=== PATIENT | male | born 1960 | race Caucasian/White ===

== ENCOUNTER 2018-11-17 17:23 | Observation (INO) | payer OTHER ==
[2018-11-17 18:48] LABS: CKMB 2.3 ng/mL (0-6.6)
[2018-11-17 21:29] LABS: Critical Call Chem Troponin I RESULT DECREASING
[2018-11-17 21:47] LABS: CKMB 2.6 ng/mL (0-6.6)
[2018-11-17 23:55] VITALS: BMI 25.3
[2018-11-18] MEDS ORDERED: Acetaminophen 325 MG TAB PO PRN (00:49)
[2018-11-18] MEDS ORDERED: Acetaminophen 650 MG Suppository PR PRN (00:49)
[2018-11-18] MEDS ORDERED: Senokot S 8.6-50 MG TAB PO PRN (00:49)
[2018-11-18] MEDS ORDERED: Calcium Carbonate 500 MG ChewTAB PO PRN (00:49)
[2018-11-18] MEDS ORDERED: Zolpidem Tartrate 5 MG TAB PO PRN (00:49)
[2018-11-18] MEDS ORDERED: Bisacodyl 5 MG TAB PO PRN (00:49)
[2018-11-18 05:56] LABS: #Eosinphils 0.1 thou/uL (0.0-0.7); #Lymphocytes 1.6 thou/uL (1.20-3.40); #Monocytes 0.8 thou/uL (0.11-0.59); #Neutrophils 2.9 thou/uL (1.40-6.50); %Basophils 0.9 % (0.0-1.0); %Eosinophils 1.3 % (0.0-10.0); %Lymphocytes 29.2 % (21.0-51.0); %Monocytes 14.1 % (0.0-10.0); %Neutrophils 54.5 % (42.0-75.0); Hemoglobin 13.2 g/dL (14.0-18.0); Mean Corpuscular HGB CONC 34.4 g/dL (32.0-36.0); Mean Platelet Volume 7.2 fL (7.4-10.4); Platelet Count 177 thou/uL (130-400); RBC Distribution Width 11.1 % (11.5-14.5); Red Blood Cell (RBC) Count 3.78 mill/uL (4.70-6.10); White Blood Cell (WBC) Count 5.4 thou/uL (4.8-10.8)
[2018-11-18 06:22] LABS: Anion Gap 11 mmol/L (10-20); BUN (Urea Nitrogen) 11 mg/dL (8.4-25.7); Calc. Creatinine Clearance 117 mL/min (70-130); Calcium 8.8 mg/dL (7.8-10.44); Carbon Dioxide 24 mmol/L (22-29); Chloride 100 mmol/L (98-107); Estimated GFR-MDRD Greater than 90; Glucose 93 mg/dL (70-105); Sodium 131 mmol/L (136-145)
[2018-11-18] MEDS ORDERED: Enoxaparin Sodium 80 MG/0.8 ML SYRINGE SC SCH ×2 (09:00)
[2018-11-18] MEDS: Famotidine 20 MG TAB PO SCH ×2 (09:12→21:30)
[2018-11-18] MEDS: Lisinopril/Hydrochlorothiazide 10 mg/12.5 mg Tablet PO SCH (09:12)
[2018-11-18] MEDS: Famotidine/PF 20 mg/2ml Vial SLOW IVP SCH ×2 (09:13→21:30)
[2018-11-18] MEDS: Aspirin 81 mg Enteric Coated Tablet PO SCH (09:13)
[2018-11-18 10:31] LABS: CKMB 2.4 ng/mL (0-6.6); Troponin I 0.093 ng/mL (< 0.028)
[2018-11-18] MEDS ORDERED: Lorazepam 0.5 MG TAB PO PRN (12:00)
--- NOTE | 2018-11-18 17:47 | HP ---
CHIEF COMPLAINT: Chest pain and dizziness. HISTORY OF PRESENT ILLNESS: The patient is a very pleasant 57-year-old male with a history of hypertension, who presented to the hospital with complaints of some chest tightness and dizziness. The patient stated that he was driving yesterday, started having significant amount of dizziness followed by palpitations of the chest. The patient stated that this has been happening to him 4 or 5 times in the past. However, he would just stop the car, would just sit down and the symptoms would go away. However, at this time, his symptoms persisted, so he came into the ER for further evaluation. The patient denies any fevers or chills. He denies any shortness of breath, any diarrhea, or any abdominal pain. The patient did have an EKG done initially, which indicated he has an SVT with a rate of 224. At this time, he was given 6 mg of adenosine and then converted and then followed by Valsalva maneuver, he went into normal sinus rhythm after that. The patient was transported here for further evaluation. PAST MEDICAL HISTORY: Has a history of hypertension. PAST SURGICAL HISTORY: He has had this paroxysmal supraventricular tachycardia and has failed ablation last time when he was here. When he was here, he had a post complication from the ablation procedure, which caused him to have a cardiac tamponade. He has had a thoracotomy with evacuation of pericardial hematoma. ALLERGIES: THE PATIENT HAS NO KNOWN DRUG ALLERGIES. MEDICATIONS: He takes lisinopril/hydrochlorothiazide 10/12.5 mg one p.o. daily and 81 mg of baby aspirin daily. REVIEW OF SYSTEMS: All negative except for the ones mentioned above in the HPI. SOCIAL HISTORY: The patient drinks about 10 beers a day. However, on , he drank more. Denies any tobacco use or any recreational drug use. He is a full code. He lives with his family members and states that every time he gets stressed down, sometimes he gets these symptoms of chest pain and palpitations. FAMILY HISTORY: Significant for heart disease in grandfather. PHYSICAL EXAMINATION: VITAL SIGNS: Are as of the following; temperature of 97.9, 55 heart rate, respirations 16, 99% on room air, blood pressure 117/80. GENERAL: He is awake, alert, and oriented x3. Does not feel any distress. CV: S1 and S2 present. No murmurs, rubs, or gallops. ABDOMEN: Soft and nontender. Bowel sounds are present x2. No hepatomegaly or splenomegaly noted. EXTREMITIES: No edema. Pedal pulses present x2. NEUROVASCULAR: There are no focal deficits noted. SKIN: No cuts, lesions, or bruises noted. HEENT: Normocephalic, atraumatic. LABORATORY RESULTS: As of the following; WBCs of 5.4, hemoglobin of 13.2, hematocrit of 38.4. His platelets are 177. Chemistry; sodium of 131, potassium of 4, BUN of 11, creatinine of 0.80. His initial troponin was 0.499, second one was 0.492, his repeat one was 0.093. The patient's EKG does have some mild T-wave inversions. ASSESSMENT AND PLAN: The patient is a very pleasant 57-year-old male, who presents to the hospital with complaints of chest pain. 1. Supraventricular tachycardia. The patient apparently has had this before and was supposed to get ablation back in 2014. However, there was a complication post when he had the procedure done. The patient currently does not take anything for rate control. He is only on lisinopril/hydrochlorothiazide. Cardiology has been consulted. Also, I did recommend this patient not to be drinking so much, which could be possibly causing him to have worsening supraventricular tachycardia. The patient normally drinks 10 drinks a day, sometimes more; on [place] time, he had more. 2. Elevated troponin. This possibly could most likely demand ischemia related from the supraventricular tachycardia. His heart rate was 220. We will just continue to monitor. The patient currently is chest pain free. 3. Alcohol abuse. The patient has been drinking, normally drinks 10 beers a day. I will put him on DANIEL protocol, also p.r.n. Ativan as needed. 4. Deep venous thrombosis prophylaxis. We will put the patient on some subcu heparin. Job ID: [id number]
[2018-11-19] MEDS: Lisinopril/Hydrochlorothiazide 10 mg/12.5 mg Tablet PO SCH (09:09)
[2018-11-19] MEDS: Famotidine 20 MG TAB PO SCH ×2 (09:09→20:57)
[2018-11-19] MEDS: Enoxaparin Sodium 40 MG/0.4 ML SYRINGE SC SCH (09:12)
[2018-11-19] MEDS: Aspirin 81 mg Enteric Coated Tablet PO SCH (09:12)
[2018-11-19] MEDS: Famotidine/PF 20 mg/2ml Vial SLOW IVP SCH ×2 (09:13→20:57)
[2018-11-19] MEDS ORDERED: ADENOSINE 60 MG/20 ML VIAL ONE (11:49)
--- NOTE | 2018-11-19 15:27 | CON ---
DATE OF CONSULTATION: REASON FOR CONSULTATION: Abnormal EKG and SVT. HISTORY OF PRESENT ILLNESS: Mr. Hayward is a 57-year-old gentleman, who is a patient of Dr. Lino Rai. He has a previous history of coronary angiography in 2016, and was not found to have significant coronary artery disease. He has also underwent ablation complicated by perforation and cardiac window. He recently presented with palpitations and tachycardia. He did have shortness of breath. He states that he was at work. He proceeded to the emergency room. He was found to be in SVT. The patient did convert to sinus rhythm. His EKG did suggest a new ST-T wave changes in addition to mildly elevated troponin at 0.4. He had no chest pain, pressure, or associated symptoms. This is felt to be due to demand ischemia. PAST MEDICAL HISTORY: Hypertension and SVT. HOME MEDICATIONS: Include lisinopril/hydrochlorothiazide. ALLERGIES: NONE. SOCIAL HISTORY: Positive for alcohol use, increased use over the [place] holidays. FAMILY HISTORY: Negative for CAD. REVIEW OF SYMPTOMS: A 10-point review of systems is reviewed and as above, otherwise negative. PHYSICAL EXAMINATION: VITAL SIGNS: Blood pressure 114/82, pulse 58, temperature 98.2. GENERAL: Patient is a pleasant 57-year-old who is in no acute distress. The patient appears their stated age. NEUROLOGIC: The patient is alert and oriented x3 with no focal neurologic deficits. HEENT: Sclerae without icterus. Mouth has moist mucous membranes with normal pallor. NECK: No JVD. Carotid upstroke brisk. No bruits bilaterally. LUNGS: Clear to auscultation with unlabored respirations. BACK: No scoliosis or kyphosis. CARDIAC: Regular rate and rhythm with normal S1 and S2. No S3 or S4 noted. No significant rubs, murmurs, thrills, or gallops noted throughout the precordium. PMI is not displaced. There is no parasternal heave. ABDOMEN: Soft, nontender, nondistended. No peritoneal signs present. No hepatosplenomegaly. No abnormal striae. EXTREMITIES: 2+ femoral and 2+ dorsalis pedis pulses. No cyanosis, clubbing, or edema. SKIN: No gross abnormalities. PERTINENT LABORATORY DATA: Hemoglobin 13.2. Creatinine 0.8. Peak troponin 0.499. DIAGNOSTIC DATA: EKG showed normal sinus rhythm with ST-T changes suggesting ischemia. IMPRESSION: 1. Supraventricular tachycardia. 2. Abnormal EKG. 3. Abnormal enzymes. RECOMMENDATIONS: Elevated troponin and EKG changes are likely related to demand ischemia. He did have coronary angiography report in 2016. I would like to assess prior to discharge. I have discussed repeat coronary angiography versus noninvasive stress study. I have discussed risks and benefits of both, decided to proceed with a noninvasive stress study. This will be scheduled today. From an SVT standpoint, we would recommend medical therapy. We would recommend digoxin at 0.125 one p.o. q.a.m. in addition to a low-dose beta karl therapy. Job ID: [id number]
--- NOTE | 2018-11-19 15:49 | EKG ---
Test Reason : Blood Pressure : / mmHG Vent. Rate : 067 BPM Atrial Rate : 067 BPM P-R Int : 150 ms QRS Dur : 090 ms QT Int : 424 ms P-R-T Axes : 028 -18 044 degrees QTc Int : 448 ms Normal sinus rhythm T wave abnormality, consider anterolateral ischemia T wave inversion Abnormal ECG Confirmed by STEPHIE PIERSON DO ([id number]), map editor PAPO JERNIGAN ([id number] on 11/19/2018 3:49:28 PM Referred By: Confirmed By:STEPHIE PIERSON DO
[2018-11-19] MEDS: Digoxin 0.25 MG TAB PO SCH ×2 (16:00→20:57)
--- NOTE | 2018-11-19 20:02 | NM ---
MYOCARDIAL PERFUSION STUDY: 11/19/2018 HISTORY: Abnormal EKG. Hypertension. SVT. RADIOPHARMACEUTICAL: Technetium 99m sestamibi 30.2 millicuries IV at stress. Technetium 99m sestamibi 10 millicuries IV at rest. MEDICATIONS: Adenosine 14.9 mL (44.8 mg) IV. FINDINGS: No significant reversible defect is seen between the stress and resting acquisitions. Gated images d emonstrate normal ventricular wall thickening. There is mild hypokinesis involving the septum. Calc ulated left ventricular ejection fraction is within normal limits at 62%. IMPRESSION: 1. Normal myocardial perfusion study without evidence of a reversible defect seen to suggest ischemi a. 2. Hypokinesis involving the ventricular septum. 3. Normal left ventricular ejection fraction of 62%. POS: KRISTINE
[2018-11-20] MEDS: Digoxin 0.25 MG TAB PO SCH (02:59)
[2018-11-20 07:48] VITALS: BP 108/77; TEMP 98.2
[2018-11-20] MEDS: Aspirin 81 mg Enteric Coated Tablet PO SCH (08:57)
[2018-11-20] MEDS: Lisinopril/Hydrochlorothiazide 10 mg/12.5 mg Tablet PO SCH (08:57)
[2018-11-20] MEDS: Famotidine 20 MG TAB PO SCH (08:58)
[2018-11-20] MEDS: Enoxaparin Sodium 40 MG/0.4 ML SYRINGE SC SCH (08:58)
[2018-11-20] MEDS: Famotidine/PF 20 mg/2ml Vial SLOW IVP SCH (08:59)
[2018-11-20] MEDS ORDERED: Digoxin 0.125 MG TAB PO SCH (09:00)
--- NOTE | 2018-11-20 10:14 | PDOC.PN ---
- Subjective Encounter Start Date: 11/19/18 Encounter Start Time: 09:00 -: old records requested/rev Pt seen and examined, chart reviewed in its entirety, this is my first visit with this patient No further CP, biomarkers down. Cards consult pending, no new recs No F/C, no N/V/D/C, no CP or SOB All systems reviewed and neg x as above - Objective MAR Reviewed: Yes Vital Signs & Weight: Vital Signs (12 hours) Temp Pulse Resp BP BP Pulse Ox 11/20/18 09:00 57 L 11/20/18 07:46 98.2 F 59 L 16 108/77 96 11/20/18 04:00 97.7 F 62 18 106/75 106/75 98 11/20/18 02:59 57 L 11/20/18 00:00 97.9 F 57 L 18 110/75 110/75 98 Weight Weight 176 lb 6.4 oz I&O: 11/19/18 11/20/18 11/21/18 06:59 06:59 06:59 Intake Total 1140 740 240 Output Total 0 Balance 1140 740 240 Result Diagrams: 11/18/18 05:23 11/18/18 05:23 Radiology Reviewed by me: Yes EKG Reviewed by me: Yes Phys Exam - Physical Examination Constitutional: NAD HEENT: PERRLA, moist MMs, sclera anicteric, oral pharynx no lesions Neck: no nodes, no JVD, supple, full ROM Respiratory: no wheezing, no rales, no rhonchi, clear to auscultation bilateral Cardiovascular: RRR, no significant murmur, no rub Gastrointestinal: soft, non-tender, no distention, positive bowel sounds Musculoskeletal: no edema, pulses present Neurological: non-focal, normal sensation, moves all 4 limbs Lymphatic: no nodes Psychiatric: normal affect, A&O x 3 Skin: no rash, normal turgor, cap refill <2 seconds Dx/Plan (1) Demand ischemia Code(s): I24.8 - OTHER FORMS OF ACUTE ISCHEMIC HEART DISEASE Status: Acute (2) SVT (supraventricular tachycardia) Code(s): I47.1 - SUPRAVENTRICULAR TACHYCARDIA Status: Resolved (3) Chronic alcohol abuse Code(s): F10.10 - ALCOHOL ABUSE, UNCOMPLICATED Status: Chronic (4) Hypertension Code(s): I10 - ESSENTIAL (PRIMARY) HYPERTENSION Status: Chronic Qualifiers: Hypertension type: essential hypertension Qualified Code(s): I10 - Essential (primary) hypertension - Plan cont current plan of care * .
--- NOTE | 2018-11-20 10:36 | DIS ---
DATE OF ADMISSION: 11/17/2018 DATE OF DISCHARGE: 11/20/2018 PRIMARY CARE PHYSICIAN: None. DISCHARGE DIAGNOSES: 1. Chest pain. 2. Supraventricular tachycardia. 3. Elevated troponin, likely demand ischemia. 4. Hyperlipidemia. CONSULTATION: Dr. Moises Wilson with Cardiology. PROCEDURE: Nuclear stress test on 11/19/2018 that was negative for reversible ischemia. HISTORY AND PHYSICAL: Mr. Hayward is a 57-year-old gentleman, who presented to the emergency department for chest pain and palpitations. He was found to be in SVT with a rate in the 130s. He was given adenosine and promptly converted. He has been asymptomatic since then. HOSPITAL COURSE: He was seen and examined by Cardiology on 11/19, who recommended a stress test, which was done. He was started on digoxin low dose overnight for prevention of SVT. This morning, he is remaining in slight sinus bradycardia and was cleared for discharge. PHYSICAL EXAMINATION: The patient was seen and examined on the day of discharge. DISCHARGE: Discussed with the patient [id number] at the bedside. DISCHARGE MEDICATIONS: New medication: Digoxin 0.125 mg p.o. daily. Prescription sent. Medications to continue: 1. Lisinopril/hydrochlorothiazide 12.5 one p.o. daily. 2. Aspirin 81 mg daily. FOLLOWUP APPOINTMENTS: Dr. Wilson in 1 to 2 weeks. DISCHARGE CONDITION: Stable. DISPOSITION: Discharged home via private vehicle. DISCHARGE DIET: Heart healthy recommended. DISCHARGE ACTIVITY: As tolerated. Job ID: [id number]
--- NOTE | 2018-11-20 14:57 | STRESS ---
Acquisition Time: 2018-11-19 16:48:10 Total Exercise Time: 00:04:00 Test Indications: ABN EKG Medications: Protocol: ADENOSINE Max HR: 093 BPM 56% of Pred: 164 BPM Max BP: 140/088 mmHG Max Work Load: 1.0 METS RESTING ECG: NORMAL SINUS RHYTHM AT 63BPM WITH NEGATVE T-WAVES IN LEADS V2-V6 AND NONSPEFIFIC ST-SEGMENT AND T-WAVE CHANGES IN LEADS II, III, AND AVF SYMPTOMS: NONE NORMAL BP RESPONSE ECTOPY: NONE ECG STRESS: 1MM DOWNSLOPING ST-SEGMENT DEPRESSION INTERPRETATION: POSITIVE ECG/AWAIT NUCLEAR IMAGES FOR DEFINITIVE DIAGNOSIS Confirmed by MISAEL SOLORIO ELLEN ([id number]) on 11/20/2018 2:57:14 PM Referred By: MD Jr ROCK Confirmed By:JO ANN SOLORIO PA-C
== END 2018-11-20 10:25 | disposition home or self-care (01) ==
LOC: ERS 17:23 → 2SE 19:27
PROVIDERS: ADMIT Internal Medicine; ATTEND Internal Medicine
DX: R07.9 Chest pain, unspecified (principal); I47.1 Supraventricular tachycardia; R79.89 Other specified abnormal findings of blood chemistry; E78.5 Hyperlipidemia, unspecified; I10 Essential (primary) hypertension; F10.10 Alcohol abuse, uncomplicated; Z79.82 Long term (current) use of aspirin; Z79.899 Other long term (current) drug therapy; Z98.890 Other specified postprocedural states
CPT/HCPCS: 36415; 78452; 80048; 82553; 84484; 85025; 93005; 93017; 96372; A9500; G0378; J0153; J1650